=== PATIENT | female | born 1945 | race African-American/Black ===

== ENCOUNTER 2016-11-17 05:48 | Day surgery (SDC) | payer MEDICARE, OTHER ==
--- NOTE | 2016-11-16 23:48 | Pre-op HX & Phy Repo 2 SIG ---
DATE OF ADMISSION: 11/17/2016 DATE OF SURGERY: 11/17/2016. PREOPERATIVE DIAGNOSIS: Retinal detachment, left eye. BRIEF NOTE: This is a first [facility] admission for Rosie Terrazas, who is a very nice 71-year-old lady, who complained of a white cloud in her vision in the left eye for the past two weeks. PAST OCULAR HISTORY: Her past ocular history is remarkable for trauma to the face and orbit several years ago in a work-related accident. She did well, but developed a cataract in the left eye, which was operated several weeks ago. Apparently, this procedure was complicated by a poorly fixated crystalline lens, which required opening of a large cataract wound superiorly and possible cryo extraction of the lens. An anterior chamber lens was successfully placed, but the patient subsequently complained of field changes and on examination was found to have a retinal detachment. PAST MEDICAL HISTORY: Remarkable for Hooker's disease for many years. She is on supplemental steroid therapy for this condition. She also had a brain surgery in 2013 for low-tension hydrocephalus related to the trauma experienced at her office. MEDICATIONS: She is currently on aspirin, Klor-Con, as well as hydrocortisone. ALLERGY: She has an allergy to codeine and tramadol. SOCIAL HISTORY: She does not smoke and drinks occasionally. OCULAR EXAMINATION: Best vision at the time of admission was 20/30 in the right eye, counting fingers at 6 feet in the left, improvable to 20/70 on the left. The pressures were 14 and 7. The anterior chamber on the right was normal with a moderate nuclear cataract. The left showed an anterior chamber lens in good position with a reasonable pupil. There was a roughly 5 o'clock hour cataract wound superiorly that appeared well sutured. Fundus examination of the right eye showed mild pigmentary degeneration in the temporal periphery, but was otherwise benign. There was a vitreous separation. The left fundus showed a superior bullous retinal detachment with extension into the macula and partial macula elevation. There appeared to be at least two flap tears in the periphery. The inferior retina showed segmentation at about the 5 o'clock position, which had been noted previously, but the retina down below was all attached. General physical examination will be performed on arrival by Dr. Shea. ASSESSMENT: 1. A bullous superior retinal detachment, left eye. 2. Pseudophakia, left eye. PLAN: The plan is to perform a pars plana vitrectomy with possible scleral buckle, endolaser, endo drainage, and gas fluid exchange. The risks and benefits of surgery have been gone over with the patient with the potential for infection, progression to retinal fibrosis, glaucoma, the need for additional operations, and remote possibility of loss of the eye. The risk of anesthesia was also discussed. The patient understands and consents to the surgery, which will be performed on tomorrow morning. Gerardo Carvalho M.D. DR: ARABELLA JOB#: [id number] CC:
[2016-11-17] VITALS (10 sets, daily range): BP systolic 115–143; BP diastolic 61–78
[~2016-11-17] VITALS: Ht 160 cm; Wt 63.5 kg
[2016-11-17] MEDS ORDERED: Pred Forte 1% Opth Susp 1ml LEFT EYE ONE (06:00)
[2016-11-17] MEDS ORDERED: Flurbiprofen 0.03% Opth Sol 2.5ml ONE (06:04)
[2016-11-17] MEDS ORDERED: Gatifloxacin Opth Solution 0.5% ONE (06:04)
[2016-11-17] MEDS ORDERED: Phenylephrine 2.5% Op Soln ONE (06:04)
[2016-11-17] MEDS ORDERED: Cyclopentolate 1% Opth Sol ONE (06:04)
--- NOTE | 2016-11-17 06:21 | Pre-Procedure Note/Attestation ---
Pre-Procedure Note/Attestation Complete Prior to Procedure Planned Procedure: left Procedure Narrative: PPV, possible scleral buckle, endolaser, gas-fluid exchange L eye Indications for Procedure Pre-Operative Diagnosis: Retinal detachment L eye Attestation I attest that I discussed the nature of the procedure; its benefits; risks and complications; and alternatives (and the risks and benefits of such alternatives ), prior to the procedure, with the patient (or the patient's legal dental detail representative). I attest that, if there was a reasonable possibility of needing a blood transfusion, the patient (or the patient's legal dental detail representative) was given the [facility] standardized written summary, pursuant to the [place] Blood Safety Act ([place] Health and Safety Code # 1645, as amended). I attest that I re-evaluated the patient just prior to the surgery and that there has been no change in the patient's H&P, except as documented below: RODO AMBROSIO November 17, 2016 06:21
[2016-11-17] MEDS: Phenylephrine 2.5% Op Soln LEFT EYE SCH ×3 (06:22→07:38)
[2016-11-17] MEDS: Cyclopentolate 1% Opth Sol LEFT EYE SCH ×3 (06:22→07:38)
[2016-11-17] MEDS: Flurbiprofen 0.03% Opth Sol 2.5ml LEFT EYE SCH ×3 (06:22→07:38)
[2016-11-17] MEDS: Gatifloxacin Opth Solution 0.5% LEFT EYE SCH ×3 (06:23→07:38)
[2016-11-17] MEDS ORDERED: DIOVAN HCT 1601 EAC1 ORAL (07:37)
[2016-11-17] MEDS ORDERED: ATENOLOL50 MG ORAL (07:37)
[2016-11-17] MEDS ORDERED: KLOR-CON 88 MEQ ORAL (07:37)
[2016-11-17] MEDS ORDERED: HYDROCORTISONE20 MG PO (07:37)
[2016-11-17] MEDS ORDERED: BIOTIN PLUS KE1 EACH PO (07:37)
[2016-11-17] MEDS ORDERED: ASPIR 8181 MG ORAL (07:37)
[2016-11-17] MEDS ORDERED: VITAMIN C500 M7 PO (07:37)
[2016-11-17] MEDS ORDERED: VITAMIN D400 INTLU ORAL (07:37)
[2016-11-17 07:45] LABS: MEAN CORPUSCULAR HEMOGLOBIN 30.6 PG (27.0-31.0); MEAN CORPUSCULAR HGB CONC 33.2 G/DL (32.0-36.0); MEAN CORPUSCULAR VOLUME 92 FL (80-99); PLATELET COUNT 320 K/UL (150-450); RED BLOOD COUNT 4.13 M/UL (4.20-5.40); RED CELL DISTRIBUTION WIDTH 12.9 % (11.6-14.8); WHITE BLOOD COUNT 12.2 K/UL (4.8-10.8)
[2016-11-17 07:59] LABS: ANION GAP 16 (5-15); CALCIUM 9.3 mg/dL (8.6-10.2); CARBON DIOXIDE 25 mEQ/L (20-30); CHLORIDE 98 mEQ/L (98-107); CREATININE 0.7 mg/dL (0.5-0.9); GLOMERULAR FILTRATION RATE > 60 mL/min (>60); HEMOLYSIS 36; POTASSIUM 3.7 mEQ/L (3.4-4.9); SODIUM 139 mEQ/L (135-145)
--- NOTE | 2016-11-17 08:47 | Anethesia Preoperative Eval ---
Anesthesia Pre-op PMH/ROS General Date of Evaluation: November 17, 2016 Time of Evaluation: 09:29 Anesthesiologist: Huseyin ASA Score: ASA 3 Mallampati Score Class I : Soft palate, uvula, fauces, pillars visible Class II: Soft palate, uvula, fauces visible Class III: Soft palate, base of uvula visible Class IV: Only hard plate visible Mallampati Classification: Class II Surgeon: Deven Diagnosis: Retinal Detachment, OS Surgical Procedure: Vitrectomy OS Anesthesia History: none Family History: no anesthesia problems Allergies: Coded Allergies: CODEINE (Verified Allergy, Severe, 11/17/16) NAUSEA TRAMADOL (Verified Allergy, Severe, 11/17/16) SEIZURE LIKE REACTION Medications: see eMAR Past Medical History Cardiovascular: Reports: HTN Pulmonary: Reports: other - Pneumothorax, 2013 Gastrointestinal/Genitourinary: Reports: GERD Neurologic/Psychiatric: Reports: depression/anxiety, other - Brain Trauma, Shunt, 2013 Endocrine: Reports: other - Addisons Disease PSxH Narrative: L Cat Ext IOL, Crainiotomy, R Knee SX, B Shoulder SX Anesthesia Pre-op Phys. Exam Physician Exam Last Vital Signs Date Time Temp Pulse Resp B/P Pulse Ox O2 Delivery O2 Flow Rate FiO2 11/17/16 07:28 97.3 64 20 131/73 96 Room Air Constitutional: NAD Neurologic: CN 2-12 intact Cardiovascular: RRR Respiratory: CTA Gastrointestinal: S/NT/ND Airway Exam Mallampati Score: Class II MO: full ROM: limited Teeth: intact Anesthesia Pre-op A/P Labs Hematology Test 11/17/16 07:20 White Blood Count 12.2 K/UL (4.8-10.8) H Red Blood Count 4.13 M/UL (4.20-5.40) L Hemoglobin 12.6 G/DL (12.0-16.0) Hematocrit 38.1 % (37.0-47.0) Mean Corpuscular Volume 92 FL (80-99) Mean Corpuscular Hemoglobin 30.6 PG (27.0-31.0) Mean Corpuscular Hemoglobin Concent 33.2 G/DL (32.0-36.0) Red Cell Distribution Width 12.9 % (11.6-14.8) Platelet Count 320 K/UL (150-450) Mean Platelet Volume 7.0 FL (6.5-10.1) Neutrophils (%) (Auto) % (45.0-75.0) Lymphocytes (%) (Auto) % (20.0-45.0) Monocytes (%) (Auto) % (1.0-10.0) Eosinophils (%) (Auto) % (0.0-3.0) Basophils (%) (Auto) % (0.0-2.0) Neutrophils % (Manual) Pending Lymphocytes % (Manual) Pending Platelet Estimate Pending Platelet Morphology Pending Chemistry Test 11/17/16 07:20 Sodium Level 139 mEQ/L (135-145) Potassium Level 3.7 mEQ/L (3.4-4.9) Chloride Level 98 mEQ/L (98-107) Carbon Dioxide Level 25 mEQ/L (20-30) Anion Gap 16 (5-15) H Blood Urea Nitrogen 17 mg/dL (7-23) Creatinine 0.7 mg/dL (0.5-0.9) Estimat Glomerular Filtration Rate > 60 mL/min (>60) Glucose Level 158 mg/dL (74-106) H Calcium Level 9.3 mg/dL (8.6-10.2) Risk Assessment & Plan Assessment: ASA 3 Plan: GA Status Change Before Surgery: Wilner Rodriguez MD November 17, 2016 08:47
[2016-11-17] MEDS ORDERED: LR 1000ml 1,000 ML IVLG SCH (08:56)
--- NOTE | 2016-11-17 08:57 | Immediate Post-Op Evaluation ---
Immediate Post-Op Evalulation Immediate Post-Op Evalulation Procedure: Vitrectomy, OS Date of Evaluation: November 17, 2016 Time of Evaluation: 11:45 IV Fluids: 500 LR Blood Products: 0 Estimated Blood Loss: 2 Urinary Output: 0 Blood Pressure Systolic: 141 Blood Pressure Diastolic: 69 Pulse Rate: 64 Respiratory Rate: 16 O2 Sat by Pulse Oximetry: 100 Temperature (Fahrenheit): 97.2 Pain Score (1-10): 1 Nausea: No Vomiting: No Complications 0 Patient Status: awake, reacts, patent, none Hydration Status: adequate Wilner Fontanez MD November 17, 2016 08:57
--- NOTE | 2016-11-17 08:58 | 48 Hour Post Anesthesia Eval ---
Post Anesthesia Evaluation Procedure: Vitrectomy, OS Date of Evaluation: November 17, 2016 Time of Evaluation: 13:54 Blood Pressure Systolic: 157 0: 84 Pulse Rate: 68 Respiratory Rate: 18 Temperature (Fahrenheit): 98.4 O2 Sat by Pulse Oximetry: 100 Airway: patent Nausea: No Vomiting: No Pain Intensity: 1 Hydration Status: adequate Cardiopulmonary Status: 0 Mental Status/LOC: patient returned to baseline Follow-up Care/Observations: 0 Post-Anesthesia Complications: 0 Follow-up care needed: ready to discharge Wilner Fontanez MD November 17, 2016 08:58
[2016-11-17] MEDS ORDERED: Meperidine 25mg/0.5ml Inj IV PRN (09:00)
[2016-11-17] MEDS ORDERED: Ketorolac 60mg Inj IV PRN (09:00)
[2016-11-17] MEDS ORDERED: Ketorolac 30mg Inj IV PRN (09:00)
[2016-11-17] MEDS ORDERED: fentaNYL 100 mcg/2 mL IV PRN (09:00)
[2016-11-17] MEDS ORDERED: Midazolam 2mg/2ml Inj IVP PRN (09:00)
[2016-11-17] MEDS ORDERED: LORazepam Inj 2mg/ml 1ml IV PRN (09:00)
[2016-11-17] MEDS ORDERED: Metoclopramide 10mg/2ml Inj IVP PRN (09:00)
[2016-11-17] MEDS ORDERED: DiphenhydrAMINE 50mg/ml Inj IVP PRN (09:00)
[2016-11-17] MEDS ORDERED: Atropine Inj 1mg/10ml Syr IV PRN (09:00)
[2016-11-17] MEDS ORDERED: BSS 500ml btl ONE (09:16)
[2016-11-17] MEDS ORDERED: Dexamethasone 4mg/ml vial ONE ×2 (09:16→09:30)
[2016-11-17] MEDS ORDERED: Tetracaine 0.5% Opth Soln ONE (09:16)
[2016-11-17] MEDS ORDERED: Kenalog-10 5ml Inj ONE (09:16)
[2016-11-17] MEDS ORDERED: Maxitrol Opth Oint 3.5gm ONE (09:16)
[2016-11-17] MEDS ORDERED: Kenalog-40 1ml Vial ONE (09:16)
[2016-11-17] MEDS ORDERED: Lidocaine 2% MPF 5ml Vial INJ ONE (09:17)
[2016-11-17] MEDS ORDERED: Sodium Hyaluronate 10 mg/ml 0.85ml ONE (09:17)
[2016-11-17] MEDS ORDERED: Povidone-Iodine 5% opth solution ONE (09:17)
[2016-11-17] MEDS ORDERED: EPINEPHrine 1mg/1ml Amp ONE (09:17)
[2016-11-17] MEDS ORDERED: BSS 15ml BTL ONE (09:17)
[2016-11-17] MEDS ORDERED: Bupivacaine 0.75% 30ml vial INJ ONE (09:17)
[2016-11-17 09:28] LABS: BAND NEUTROPHILS % (MANUAL) 0 % (0-8); BASOPHILS % (MANUAL) 0 % (0-2); EOSINOPHILS % (MANUAL) 0 % (0-3); LYMPHOCYTES % (MANUAL) 8 % (20-45); NEUTROPHILS % (MANUAL) 88 % (45-75); PLATELET ESTIMATE ADEQUATE; PLATELET MORPHOLOGY NORMAL; TOTAL CELLS COUNTED 100
[2016-11-17] MEDS ORDERED: Sterile Water Irrig 1000ml IRRIG ONE (09:30)
[2016-11-17] MEDS ORDERED: Propofol 10mg/ml 20ml IV ONE (09:30)
[2016-11-17] MEDS ORDERED: Alfentanil 2ml Inj ONE (09:30)
[2016-11-17] MEDS ORDERED: LR 1000ml ONE (09:30)
[2016-11-17] MEDS ORDERED: Lidocaine 1% MPF 10mg/ml 5ml ONE (09:30)
[2016-11-17] MEDS ORDERED: Midazolam 2mg/2ml Inj ONE (09:30)
[2016-11-17] MEDS ORDERED: Neosporin Oph Soln 5ml Btl ONE (10:02)
[2016-11-17] MEDS ORDERED: Pilocarpine 2% Opth Soln ONE (11:13)
--- NOTE | 2016-11-17 11:37 | Brief Operative Note ---
Immediate Post Operative Note Operative Note Chief Complaint: Shadow in vision L eye Pre-op Diagnosis: Retinal detachment L eye Procedure: PPV, scleral buckle (240 band/ 70 sleeve), Kenalog injection, endodrainage, cryo , endolaser 924 spots, gas-fluid exchange (24% SF-6) L eye Post-op Diagnosis: same as pre-op Surgeon: bryson Director Of Assessment: none Anesthesiologist: Huseyin Anesthesia: general Specimen: none Complications: none Condition: stable Estimated Blood Loss: none Drains: none Implant(s) used?: Yes - 240 band, 70 sleeve ROOD AMBROSIO November 17, 2016 11:37
--- NOTE | 2016-11-17 12:18 | Pre-op HX & Phy Repo 2 SIG ---
DATE OF ADMISSION: 11/17/2016 PRESURGICAL INTERNAL MEDICINE HISTORY AND PHYSICAL: REASON FOR EVALUATION: I was asked by Dr. Gerardo Carvalho to see this 71-year-old female, who is going for elective surgery of the left eye. The patient has retinal detachment, left eye. Please see full ophthalmology history and physical by Dr. Gerardo Carvalho. The patient was evaluated. Chart was reviewed. PAST MEDICAL HISTORY/REVIEW OF SYSTEMS: Remarkable for hypertension, Rehan disease. Denies history of heart attack. No diabetes. Denies history of thyroid problem. No history of anemia or renal insufficiency. The patient has history of GERD and lumbar spine L5 disk prolapse. PAST SURGICAL HISTORY: Cataract, hydrocephalus, and right knee meniscus. FAMILY HISTORY: Father from hypertension complication. Mother alive, she is 92 years old, and has diabetes, hypertension, and history of colon CA. ALLERGIES: To tramadol, codeine, and plastic tape. CURRENT MEDICATIONS: Include Diovan/hydrochlorothiazide 160/25, KCl, cortisone, baby aspirin 81 mg, atenolol 50 mg daily, Biaxin vitamin C, vitamin D 1000 units daily. SOCIAL HISTORY: Denies history of tobacco use or alcohol use. No street drugs. PHYSICAL EXAMINATION: GENERAL: Alert, well-developed, well-nourished female, in her 60s, in no acute distress. VITAL SIGNS: Blood pressure 161/73, temperature 97.3, pulse 61 and regular, respirations 20, and O2 saturation 96% on room air. HEENT: Head normocephalic. Ears clear, no discharge. Eyes, full description per Dr. Gerardo Carvalho. Mouth clear and moist. Partial denture on the bottom. SKIN: Dry, warm. No diaphoresis or rashes. LYMPHATICS: Lymph nodes not enlarged. NECK: Supple. No jugular venous distention. Carotids artery +2. Trachea midline. CHEST: No deformity or asymmetry. No palpable mass. LUNGS: Clear. No rales or rhonchi. No wheezing. ABDOMEN: Soft, obese. Liver and spleen not enlarged. No rebound. EXTREMITIES: No edema. No calf tenderness. No varicose vein. GENITOURINARY TRACT: CVA nontender. No dysuria. NERVOUS SYSTEM: No tremor. No nystagmus. LABORATORY AND DIAGNOSTIC DATA: ECG, sinus rhythm with PVCs, cannot rule out anterior NC old. Laboratory work pending. The patient's last meal intake at midnight last night. IMPRESSION: 1. Retinal detachment, left eye. 2. Hypertension, controlled. 3. History of [place] disease, presently on the steroid treatment. 4. Gastroesophageal reflux disease. 5. L5 disk prolapse. PLAN: Pars plana vitrectomy, 23G endolaser, scleral buckle, left eye per Dr. Gerardo Carvalho. CONCLUSION: This is a pleasant 71-year-old female going for elective surgery on the left eye. The patient has normal vital signs. Asymptomatic. Did not eat or drink from last night. The patient's condition optimized for surgery. Becky Shea M.D. DR: Abundio JOB#: [id number] CC:
--- NOTE | 2016-11-17 18:08 | Operative Note - Dictated ---
DATE OF OPERATION: 11/17/2016 PREOPERATIVE DIAGNOSIS: Bullous retinal detachment, left eye. POSTOPERATIVE DIAGNOSIS: Bullous retinal detachment, left eye. PROCEDURES: 1. Pars plana vitrectomy. 2. Scleral buckle. 3. Kenalog injection. 4. Peripheral cryopexy. 5. Endolaser. 6. Gas fluid exchange, left eye. SURGEON: Gerardo Carvalho M.D. ASSISTANT SHIFT SUPERVISOR: None. ANESTHESIA: LMA general. ANESTHESIOLOGIST: Dr. Fontanez. JUSTIFICATION FOR SURGERY: This 71-year-old lady underwent cataract surgery three weeks ago and subsequently complained of a clouds in the vision. She was found to have a retinal detachment. Brief Note: The patient was brought to the operating room, placed on operating room table in the supine position. After a time-out was performed and agreed upon by the staff, LMA general anesthesia was induced by Dr. Fontanez. Retrobulbar and Van Lint blocks again then given to limit the amount of intraoperative anesthesia needed and to limit postoperative pain. She was then prepped and draped in the normal manner. A lid speculum was inserted into the left eye. A 360-degree peritomy was cut with relaxation incisions at the 3 and 9 o'clock positions. The muscles were isolated and turned on black and white ties. The quadrants were explored and found to be without scleral thinning. Examination was performed and a horseshoe flap tear was noted at the 8:30 position. Careful scleral depression revealed other suspicious areas with a suspected lesion at the 3 o'clock position with no definite breaks. The tear at the 8:30 position was carefully marked on the sclera. A gentle cryopexy was used to place three lesions beneath the tear. Sutures were then placed for an encircling buckle. A 5-0 nylon was used in each quadrant in the form of a mattress suture with the ends 3 mm apart. These were placed in the four primary quadrants. A segment of 240 band was then placed beneath the muscles and mattress sutures and secured in the supranasal quadrant with a segment of 70 sleeve. The sutures were tied and rotated posteriorly and the ends of the buckle were partially trimmed as it was drawn to match the circumference of the eye. This left to be tightened later. At this juncture, preparation was made for the vitrectomy. Using a 23-gauge trocar system cannulas were placed in all except infranasal quadrant. Infusion secured inferotemporally. Vitrectomy was begun posterior to the lens implant. A central core vitrectomy was performed followed by peripheral vitrectomy leaving a small vitreous skirt. A shaving was done over the infranasal break to reveal the open hole atrially. Kenalog was used to aid in visualization of the peripheral vitreous. Once this had been performed, it was elected to do endo drainage. Using the Endo diathermy, a small patch of retina was subjected to diathermy superior and slightly nasal to the optic nerve. Through this, the fluid was drained at the same time as a gas fluid exchange was performed. The retina was noted to flatten nicely. Endolaser was then brought to the eye and a power of 0.3 garcia duration 0.2 seconds, 3 to 4 rows of additional laser were placed around the noted break and also at the suspicious area temporally. A double row of laser was placed along the inferior buccal and also superiorly. Laser was also placed around the endo drainage site supranasal to the nerve. With the retina now flat, a gas-gas exchange was performed using a 24 mixture of SF 6, this went without difficulty. The superior cannulas were then removed and these wounds were closed with 8-0 Vicryl suture. The buckle was prolonged slightly more tightly leaving a mild to moderate buckling affect. The ends were then trimmed. The infusion cannula was also removed and this a sclerotomy closed with 8-0 Vicryl. Conjunctiva and tenons capsule were then pulled up and secured with interrupted sutures of 6-0 plain catgut with the knots buried. Subconjunctival Decadron and gentamicin were then injected inferiorly and Maxitrol ointment as well as topical pilocarpine and prednisolone drops were instilled. The eye was patched and shielded. The patient taken to recovery in excellent condition. There were no complications. She is to be placed in a face-down for the ensuing hour and combination of face down and [id number] positioning for the next three to four days. Gerardo Carvaloh M.D. DR: YE JOB#: [id number] CC: Gerardo Carvalho M.D.
== END 2016-11-17 14:00 | disposition home or self-care (01) ==
LOC: SUR 05:48
DX: H33.011 Retinal detachment with single break, right eye (principal); Z96.1 Presence of intraocular lens; E27.1 Primary adrenocortical insufficiency; I10 Essential (primary) hypertension; K21.9 Gastro-esophageal reflux disease without esophagitis; M51.26 Other intervertebral disc displacement, lumbar region; F32.9 Major depressive disorder, single episode, unspecified; F41.9 Anxiety disorder, unspecified; Z79.82 Long term (current) use of aspirin; Z88.6 Allergy status to analgesic agent; Z88.5 Allergy status to narcotic agent
CPT/HCPCS: 36415; 67108; 80048; 85007; 85025; 93005; J0171; J1100; J2250; J2405; J2704; J3301; J3470; J3490; J7120; 94003; 94150